=== PATIENT | male | born 1955 | race Caucasian/White ===

== ENCOUNTER 2017-08-26 09:15 | Inpatient (IN) | payer OTHER ==
[2017-08-26] MEDS ORDERED: cloNIDine HCl 0.1 MG TAB ONE (09:43)
[2017-08-26] MEDS ORDERED: ASPIRIN 81 MG CHEWABLE TABLET ONE (09:43)
[2017-08-26 09:53] LABS: Absolute Lymphocytes (CBC) 1.7 K/uL (0.7-4.9); Absolute Monocytes 0.6 K/uL (0.1-1.3); Absolute Neutrophil 3.3 K/uL (1.8-8.0); Basophils % 0.4 % (0-1.3); Eosinophils % 1.3 % (0-4.4); Hematocrit 43.7 % (39.6-49.0); Lymphocytes % 29.7 % (15.3-44.8); MCH 32.4 pg (27.0-35.0); MCV 96.3 fL (80-100); Monocytes % 10.1 % (3.3-12.3); RBC Red Blood Cell Count 4.54 M/uL (4.33-5.43)
[2017-08-26 09:57] LABS: Protime INR 1.02
--- NOTE | 2017-08-26 10:11 | RAD REPORT ---
EXAM DESCRIPTION: RAD - Chest Single View - 08/26/2017 10:02 am CLINICAL HISTORY: Chest pain COMPARISON: June 2011 TECHNIQUE: AP portable chest image was obtained 0951 hours . FINDINGS: Lungs are clear. Heart and vasculature are normal. No measurable pleural effusion and no p neumothorax. No gross bony abnormality seen. No acute aortic findings suspected. IMPRESSION: No acute cardiopulmonary process. No significant interval change.
[2017-08-26 10:43] LABS: Potassium 4.2 mEq/L (3.6-5.0)
[2017-08-26 10:49] LABS: Albumin 4.4 g/dL (3.2-5.5); Bilirubin Direct 0.1 mg/dL (0-0.2); Bilirubin Total 0.7 mg/dL (0.3-1.2); Protein, Total 7.7 g/dL (6.0-8.3)
[2017-08-26] MEDS ORDERED: CLOPIDOGREL 75 MG TABLET ONE (10:53)
--- NOTE | 2017-08-26 11:04 | EDPHYS ---
Physician Documentation [facility] Name: Woo Alas Age: 61 yrs Sex: Male : 1955 Arrival Date: 08/26/2017 Time: 09:16 Bed 8 Private MD: Rasheed Huerta S ED Physician Kade Mcallister HPI: 08/26 09:58 This 61 yrs old Male presents to ER via Wheelchair with complaints of Chest kdr Tightness, Arm Pain. 09:58 The patient or guardian reports chest pain that is located primarily in the substernal kdr area, anterior chest wall, left. Onset: Night before last - intermittent since then, pressure/tightness/squeezing. States that he is under a lot of stress. The pain radiates to the left arm. Associated signs and symptoms: The patient has no apparent associated signs or symptoms. The chest pain is described as aching, dull, a heaviness, a pressure, squeezing. Duration: The patient or guardian reports multiple episodes, that are intermittent, that wax and wane, with no pattern. Severity of pain: At its worst the pain was mild moderate just prior to arrival, in the emergency department the pain has improved mildly. The patient has not experienced similar symptoms in the past. Historical: - Allergies: 09:38 NKA; iw - Home Meds: 09:38 atorvastatin 10 mg oral tab 1 tab once daily [Active]; levothyroxine 75 mcg tab 1 tab iw once daily [Active]; aspirin 81 mg Oral TbEC 1 tab once daily [Active]; Fish Oil oral oral [Active]; Magnesium Oxide Oral [Active]; Vitamin B-6 Oral [Active]; Vitamin E Oral [Active]; - PMHx: 09:38 Hyperlipidemia; Hypothyroidism; iw - PSHx: 09:38 None; iw - Immunization history:: Adult Immunizations not up to date. - Social history:: Smoking status: Patient/guardian denies using tobacco. ROS: 09:58 Constitutional: Negative for fever, chills, and weight loss, Eyes: Negative for injury, kdr pain, redness, and discharge, ENT: Negative for injury, pain, and discharge, Neck: Negative for injury, pain, and swelling, Respiratory: Negative for shortness of breath, cough, wheezing, and pleuritic chest pain, Abdomen/GI: Negative for abdominal pain, nausea, vomiting, diarrhea, and constipation, Back: Negative for injury and pain, : Negative for injury, bleeding, discharge, and swelling, MS/Extremity: Negative for injury and deformity, Skin: Negative for injury, rash, and discoloration, Neuro: Negative for headache, weakness, numbness, tingling, and seizure activity. Psych: Negative for depression, anxiety, suicide ideation, homicidal ideation, and hallucinations, Allergy/Immunology: Negative for hives, rash, and allergies, Endocrine: Negative for neck swelling, polydipsia, polyuria, polyphagia, and marked weight changes, Hematologic/Lymphatic: Negative for swollen nodes, abnormal bleeding, and unusual bruising. 09:58 Cardiovascular: Positive for chest pain, of the anterior aspect of left upper chest and left breast, Negative for edema, orthopnea, palpitations, paroxysmal nocturnal dyspnea, acute changes. Exam: 09:58 Constitutional: This is a well developed, well nourished patient who is awake, alert, kdr and in no acute distress. Head/Face: Normocephalic, atraumatic. Eyes: Pupils equal round and reactive to light, extra-ocular motions intact. Lids and lashes normal. Conjunctiva and sclera are non-icteric and not injected. Cornea within normal limits. Periorbital areas with no swelling, redness, or edema. Neck: Trachea midline, no thyromegaly or masses palpated, and no cervical lymphadenopathy. Supple, full range of motion without nuchal rigidity, or vertebral point tenderness. No Meningismus. Chest/axilla: Normal chest wall appearance and motion. Nontender with no deformity. No lesions are appreciated. Cardiovascular: Regular rate and rhythm with a normal S1 and S2. No gallops, murmurs, or rubs. Normal PMI, no JVD. No pulse deficits. Respiratory: Lungs have equal breath sounds bilaterally, clear to auscultation and percussion. No rales, rhonchi or wheezes noted. No increased work of breathing, no retractions or nasal flaring. Abdomen/GI: Soft, non-tender, with normal bowel sounds. No distension or tympany. No guarding or rebound. No evidence of tenderness throughout. Back: No spinal tenderness. No costovertebral tenderness. Full range of motion. Skin: Warm, dry with normal turgor. Normal color with no rashes, no lesions, and no evidence of cellulitis. MS/ Extremity: Pulses equal, no cyanosis. Neurovascular intact. Full, normal range of motion. Neuro: Awake and alert, GCS 15, oriented to person, place, time, and situation. Cranial nerves II-XII grossly intact. Motor strength 5/5 in all extremities. Sensory grossly intact. Cerebellar exam normal. Normal gait. Psych: Awake, alert, with orientation to person, place and time. Behavior, mood, and affect are within normal limits. Vital Signs: 09:38 BP 184 / 91; Pulse 57; Resp 16 S; Temp 97.8(TE); Pulse Ox 99% on R/A; Weight 72.12 kg; iw Height 5 ft. 10 in. (177.80 cm); Pain 2/10; 10:00 BP 173 / 95; Pulse 52; Resp 16; Pulse Ox 99% ; jl7 10:30 BP 137 / 80; Pulse 53; Resp 16; Pulse Ox 99% ; jl7 12:28 BP 117 / 81; Pulse 56; Resp 18; Pulse Ox 98% on R/A; ae1 09:38 Body Mass Index 22.81 (72.12 kg, 177.80 cm) iw MDM: 11:04 Patient medically screened. kdr 11:05 Data reviewed: vital signs, nurses notes, lab test result(s), EKG, radiologic studies. [facility] 08/26 09:28 Order name: Basic Metabolic Panel [facility] 08/26 09:28 Order name: BNP; Complete Time: 10:47 [facility] 08/26 09:28 Order name: CBC with Diff; Complete Time: 10:47 [facility] 08/26 09:28 Order name: Ckmb [facility] 08/26 09:28 Order name: CPK [facility] 08/26 09:28 Order name: LFT's [facility] 08/26 09:28 Order name: Magnesium [facility] 08/26 09:28 Order name: PT-INR; Complete Time: 10:47 [facility] 08/26 09:28 Order name: Ptt, Activated; Complete Time: 10:47 [facility] 08/26 09:28 Order name: Troponin (emerg Dept Use Only); Complete Time: 10:47 [facility] 08/26 09:28 Order name: XRAY Chest (1 view); Complete Time: 10:47 [facility] 08/26 09:56 Order name: TSH [facility] 08/26 11:07 Order name: Echo with Doppler [facility] 08/26 11:08 Order name: Urinalysis [facility] 08/26 09:28 Order name: EKG; Complete Time: 09:29 [facility] 08/26 09:28 Order name: Cardiac monitoring; Complete Time: : [facility] 08/26 09:28 Order name: EKG - Nurse/Tech; Complete Time: : [facility] 08/26 09:28 Order name: IV Saline Lock; Complete Time: : [facility] 08/26 09:28 Order name: Labs collected and sent; Complete Time: : [facility] 08/26 09:28 Order name: O2 Per Protocol; Complete Time: : [facility] 08/26 09:28 Order name: O2 Sat Monitoring; Complete Time: : [facility] 08/26 11:07 Order name: CONS Physician Consult [facility] 08/26 11:07 Order name: Heart Healthy [facility] 08/26 11:07 Order name: EKG Electrocardiogram [facility] 08/26 11:07 Order name: EKG Electrocardiogram [facility] Administered Medications: 09:48 Drug: Aspirin Chewable Tablet 324 mg Route: PO; jl7 10:56 Follow up: Response: No adverse reaction jl7 09:48 Drug: cloNIDine 0.2 mg Route: PO; jl7 10:30 Follow up: Response: No adverse reaction; Blood pressure is lowered jl7 11:03 Drug: PlaVIX 300 mg Route: PO; jl7 11:20 Follow up: Response: No adverse reaction jl7 Disposition: 08/26/17 11:04 Hospitalization ordered by Simran Bernal for Inpatient Admission. Preliminary diagnosis are Other chest pain, Acute coronary syndrome. - Bed requested for Telemetry/MedSurg (Inpatient). - Status is Inpatient Admission. jl7 - Condition is Fair. - Problem is new. - Symptoms have improved. UTI on Admission? No Signatures: Dispatcher [employer] [facility] Kade Mcallister MD MD kdr Emily Parra RN RN iw Martinez, Eric em1 Leal, Jahala, RN RN jl7 Corrections: (The following items were deleted from the chart) 11:08 11:04 Hospitalization Ordered by Simran Bernal MD for Observation. Preliminary kdr diagnosis is Other chest pain; Acute coronary syndrome. Bed requested for Telemetry/MedSurg (observation). Status is Observation. Condition is Fair. Problem is new. Symptoms have improved. UTI on Admission? No. kdr 11:08 11:08 08/26/2017 11:04 Hospitalization Ordered by Simran Bernal MD for Observation. kdr Preliminary diagnosis is Other chest pain; Acute coronary syndrome. Bed requested for Telemetry/MedSurg (observation). Status is Observation. Condition is Fair. Problem is new. Symptoms have improved. UTI on Admission? No. kdr 12:59 11:08 08/26/2017 11:04 Hospitalization Ordered by Simran Bernal MD for Inpatient em1 Admission. Preliminary diagnosis is Other chest pain; Acute coronary syndrome. Bed requested for Telemetry/MedSurg (Inpatient). Status is Inpatient Admission. Condition is Fair. Problem is new. Symptoms have improved. UTI on Admission? No. kdr 13:19 12:59 08/26/2017 11:04 Hospitalization Ordered by Simran Bernal MD for Inpatient jl7 Admission. Preliminary diagnosis is Other chest pain; Acute coronary syndrome. Bed requested for Telemetry/MedSurg (Inpatient). Status is Inpatient Admission. Condition is Fair. Problem is new. Symptoms have improved. UTI on Admission? No. em1
--- NOTE | 2017-08-26 11:04 | ER ---
Nurse's Notes [facility] Name: Woo Alas Age: 61 yrs Sex: Male : 1955 Arrival Date: 08/26/2017 Time: 09:16 Bed 8 Private MD: Rasheed Huerta S Diagnosis: Other chest pain;Acute coronary syndrome Presentation: 08/26 09:33 Presenting complaint: Patient states: has had chest pain X 2 days, intermittent, feels iw like pressure, radiates to left under arm at times, c/o mild dizziness and nausea when pain hits. Transition of care: patient was not received from another setting of care. Onset of symptoms was August 24, 2017. Initial Sepsis Screen: Does the patient meet any 2 criteria? No. Patient's initial sepsis screen is negative. Does the patient have a suspected source of infection? No. Patient's initial sepsis screen is negative. Care prior to arrival: None. 09:33 Method Of Arrival: Wheelchair iw 09:33 Acuity: MIRELLA 3 iw Historical: - Allergies: 09:38 NKA; iw - Home Meds: 09:38 atorvastatin 10 mg oral tab 1 tab once daily [Active]; levothyroxine 75 mcg tab 1 tab iw once daily [Active]; aspirin 81 mg Oral TbEC 1 tab once daily [Active]; Fish Oil oral oral [Active]; Magnesium Oxide Oral [Active]; Vitamin B-6 Oral [Active]; Vitamin E Oral [Active]; - PMHx: 09:38 Hyperlipidemia; Hypothyroidism; iw - PSHx: 09:38 None; iw - Immunization history:: Adult Immunizations not up to date. - Social history:: Smoking status: Patient/guardian denies using tobacco. Screenin:00 Abuse screen: Denies threats or abuse. Denies injuries from another. Nutritional jl7 screening: No deficits noted. Tuberculosis screening: No symptoms or risk factors identified. Fall Risk IV access (20 points). Total Dover Fall Scale indicates No Risk (0-24 pts). Assessment: 09:40 General: Appears in no apparent distress. uncomfortable, Behavior is calm, cooperative, jl7 appropriate for age. Pain: Complains of pain in anterior aspect of left upper chest Pain radiates to left arm Pain currently is 2 out of 10 on a pain scale. at worst was 7 out of 10 on a pain scale. Quality of pain is described as pressure, Pain began 2-3 days ago. Is intermittent. Neuro: Level of Consciousness is awake, alert, obeys commands, Oriented to person, place, time, situation. Cardiovascular: Heart tones S1 S2 present Patient's skin is warm and dry. Rhythm is sinus bradycardia Chest pain is described as mild, quality is pressure, is located in left anterior chest wall radiates to left arm(s) began 2 days ago episodes are intermittent is alleviated by position, rest, Pt reports shortness of breath "when the pain hits.". Respiratory: Airway is patent Respiratory effort is even, unlabored, Respiratory pattern is regular, symmetrical, Breath sounds are clear bilaterally. GI: No signs and/or symptoms were reported involving the gastrointestinal system. : No signs and/or symptoms were reported regarding the genitourinary system. EENT: No signs and/or symptoms were reported regarding the EENT system. Derm: Skin is pink, warm \\T\\ dry. Musculoskeletal: No signs and/or symptoms reported regarding the musculoskeletal system. 10:47 Reassessment: Troponin 0.49, provider notified. jl7 11:00 Reassessment: Provider at bedside discussing lab results and plan of care. jl7 12:00 Reassessment: No changes from previously documented assessment. Patient and/or family jl7 updated on plan of care and expected duration. Pain level reassessed. Patient is alert, oriented x 3, equal unlabored respirations, skin warm/dry/pink. 13:00 Reassessment: Patient and/or family updated on plan of care and expected duration. Pain jl7 level reassessed. Patient is alert, oriented x 3, equal unlabored respirations, skin warm/dry/pink. Vital Signs: 09:38 BP 184 / 91; Pulse 57; Resp 16 S; Temp 97.8(TE); Pulse Ox 99% on R/A; Weight 72.12 kg; iw Height 5 ft. 10 in. (177.80 cm); Pain 2/10; 10:00 BP 173 / 95; Pulse 52; Resp 16; Pulse Ox 99% ; jl7 10:30 BP 137 / 80; Pulse 53; Resp 16; Pulse Ox 99% ; jl7 12:28 BP 117 / 81; Pulse 56; Resp 18; Pulse Ox 98% on R/A; ae1 09:38 Body Mass Index 22.81 (72.12 kg, 177.80 cm) ED Course: 09:16 Patient arrived in ED. rg4 09:16 Rasheed Huerta MD is Private Physician. rg4 09:25 Kade Mcallister MD is Attending Physician. kdr 09:36 Triage completed. iw 09:37 EKG done, by education technician. reviewed by Kade Mcallister MD. tc 09:38 Initial lab(s) drawn, by pr, sent to lab. Inserted saline lock: 20 gauge in right jl7 antecubital area, using aseptic technique. Blood collected. Patient maintains SpO2 saturation greater than 95% on room air. 09:38 Arm band placed on. iw 09:40 Vandana Han RN is Primary Nurse. jl7 09:40 Patient has correct armband on for positive identification. Placed in gown. Bed in low jl7 position. Call light in reach. Side rails up X 1. personnel monitor on. Pulse ox on. NIBP on. 09:59 X-ray completed. Portable x-ray completed in exam room. Patient tolerated procedure sw well. 10:00 XRAY Chest (1 view) In Process Unspecified. EDMS 11:03 Simran Bernal MD is Hospitalizing Provider. kdr 13:18 No provider procedures requiring assistance completed. Patient admitted, IV remains in jl7 place. Administered Medications: 09:48 Drug: Aspirin Chewable Tablet 324 mg Route: PO; jl7 10:56 Follow up: Response: No adverse reaction jl7 09:48 Drug: cloNIDine 0.2 mg Route: PO; jl7 10:30 Follow up: Response: No adverse reaction; Blood pressure is lowered jl7 11:03 Drug: PlaVIX 300 mg Route: PO; jl7 11:20 Follow up: Response: No adverse reaction jl7 Outcome: 11:04 Decision to Hospitalize by Provider. kdr 13:18 Admitted to Tele accompanied by tech, via wheelchair, room 414, with chart, Report jl7 called to ALEX Johnson 13:18 Condition: stable 13:18 Discharge instructions given to patient, family, Instructed on the need for admit, Demonstrated understanding of instructions. 13:19 Patient left the ED. jl7 Signatures: Dispatcher [employer] [facility] Kade Mcallister MD MD kdr Emily Parra RN RN Simona Santos, technical support engineer EKG Ttc Pino, Kana Pinto, RN RN ae1 Haley Hager4 Vandana Han, RN RN jl7
[2017-08-26] MEDS ORDERED: ONDANSETRON 4 MG/2 ML VIAL IV PRN (11:05)
[2017-08-26] MEDS ORDERED: ACETAMINOPHEN 500 MG TAB PO PRN (11:05)
--- NOTE | 2017-08-26 12:18 | EKG ---
Test Date: 2017-08-26 Test Time: 09:40:27 Engineering Officer: LIEN MEASUREMENT RESULTS: Intervals: Rate: 55 CO: 186 QRSD: 104 QT: 416 QTc: 397 [place]: P: 55 CO: 186 QRS: 49 T: 68 INTERPRETIVE STATEMENTS: Sinus bradycardia Otherwise normal ECG No previous ECG available for comparison Electronically Signed On 08-26-17 12:17:50 CDT by Ketan Hansen
--- NOTE | 2017-08-26 13:04 | ECHO ---
HEIGHT: 5 ft 10 in WEIGHT: 158 lb 15.958 oz DATE OF STUDY: 08/26/[address]: Simran Bernal MD 2-DIMENSIONAL: YES M.MODE: YES DOPPLER: YES COLOR FLOW: YES TDS: NO PORTABLE: NO DEFINITY: NO BUBBLE STUDY: NO DIAGNOSIS: CHEST PAIN CARDIAC HISTORY: CATHERIZATION: NO SURGERY: NO PROSTHETIC VALVE: NO PACEMAKER: NO MEASUREMENTS (cm) DIASTOLIC (NORMALS) SYSTOLIC (NORMALS) IVSd 0.8 (0.6-1.2) LA Diam 3.4 (1.9-4.0) LVEF 68% LVIDd 4.3 (3.5-5.7) LVIDs 2.7 (2.0-3.5) %FS 38% LVPWd 0.9 (0.6-1.2) Ao Diam 3.2 (2.0-3.7) 2 DIMENSIONAL ASSESSMENT: RIGHT ATRIUM: NORMAL LEFT ATRIUM: NORMAL RIGHT VENTRICLE: NORMAL LEFT VENTRICLE: NORMAL TRICUSPID VALVE: NORMAL MITRAL VALVE: NORMAL PULMONIC VALVE: NORMAL AORTIC VALVE: NORMAL PERICARDIAL EFFUSION: NONE AORTIC ROOT: NORMAL LEFT VENTRICULAR WALL MOTION: NORMAL DOPPLER/COLOR FLOW: TRACE MITRAL AND TRICUSPID REGURGITATION. NORMAL RIGHT VENTRICULAR SYSTOLIC PRESSURE. COMMENTS: NORMAL 2D ECHOCARDIOGRAM. TRACE MITRAL AND TRICUSPID REGURGITATION. TECHNOLOGIST: Katarina BHANDARI
--- NOTE | 2017-08-26 13:27 | P.HP ---
Certification for Inpatient Patient admitted to: Inpatient With expected LOS: >2 Midnights Patient will require the following post-hospital care: None Practitioner: I am a practitioner with admitting privileges, knowledge of patient current condition, hospital course, and medical plan of care. Services: Services provided to patient in accordance with Admission requirements found in Title 42 Section 412.3 of the Code of Federal Regulations Patient History Date of Service: 08/26/17 Primary Care Provider: Dr Huerta Reason for admission: Chest pain History of Present Illness: 61 y/o M with significant past medical history of hypertension who presented to the ED complaining of having some chest discomfort that started yesterday. Patient stated that for a month now he has been in a working to move his house and couple of days ago he was helping his son in the yd and to cut down a tree with an Axe. Last night however patient started noticing that he was having some chest discomfort that was radiating down to his right arm and was pressure- like in nature and thus decided to come to the ER today. Patient stated that he had associated shortness of breath as well. Patient stated that he has seen Dr. Hansen in the past for similar symptoms and at that time he had sent some lab work to [facility] to get tested. His pain was 8/10 at its worse and nothing has helped his pain at home. Patient currently in the ER does not have any pain however says that there is some mild discomfort in the chest area. In the ED patient had lab work done which was consistent with troponin I x1 elevated to 0.49. Medicine team was then consulted to admit the patient for further care Allergies niacin [Niacin] Adverse Reaction (Severe, Verified 07/12/11 00:33) Itching/Hives/Rash No Known Allergies Allergy (Uncoded 08/26/17 13:23) Unknown Home Medications: Hydrocodone/Acetaminophen [Vicodin 5-500 Tablet] 1 each PO Q3HP PRN #30 tablet 07/12/11 Sulfamethoxazole/Trimethoprim [Bactrim Ds Tablet] 1 each PO Q12HR #20 tablet 12/04 - Past Medical/Surgical History Diabetic: No - Family History Father -: Heart disease, Cancer, Other (see notes) Notes: prostate CA, heart attack cause of (79) Mother -: Heart disease, Kidney disease Notes: artery disease, of kidney failure. siblings -: Heart disease, Cancer, Kidney disease Notes: pancreatic CA- brother and sister cause of . heart attack (2 older brothers) older passed 66y.o. due to heart disease, other one still alive. KIDNEY STONES althroughout the family. - Social History Alcohol use: Yes CD- Drugs: No Caffeine use: Yes Review of Systems General: As per HPI Physical Examination - Physical Exam General: Alert, In no apparent distress HEENT: Atraumatic Neck: Supple Respiratory: Clear to auscultation bilaterally, Normal air movement Cardiovascular: Regular rate/rhythm, Normal S1 S2 Gastrointestinal: Normal bowel sounds, No tenderness Musculoskeletal: No tenderness Integumentary: No rashes Neurological: Normal speech, Normal strength at 5/5 x4 extr, Normal tone Lymphatics: No axilla or inguinal lymphadenopathy - Studies Laboratory Data (last 24 hrs) 08/26/17 09:38: PT 12.0, INR 1.02, APTT 28.0 08/26/17 09:38: WBC 5.6, Hgb 14.7, Hct 43.7, Plt Count 156 08/26/17 09:38: B-Natriuretic Peptide 99 08/26/17 09:38: Sodium 138, Potassium 4.2, BUN 21 H, Creatinine 0.89, Glucose 99 , Magnesium 2.0, Total Bilirubin 0.7, AST 40, ALT 30, Alkaline Phosphatase 35 L Assessment and Plan - Problems (Diagnosis) (1) NSTEMI (non-ST elevated myocardial infarction) Current Visit: Yes Status: Acute Plan: Troponin x 1 elevated in the ED. EKG with no specific changes. -Cardiac consulted. Awaiting Reccs -On BB, ASA, lipitor, Lovenox -ECHO pending (2) HTN (hypertension) Current Visit: Yes Status: Chronic Plan: Restart BP medication Qualifiers: Hypertension type: essential hypertension Qualified Code(s): I10 - Essential (primary) hypertension (3) Hypothyroid Current Visit: Yes Status: Chronic Plan: Restart Home medication Qualifiers: Hypothyroidism type: acquired Qualified Code(s): E03.9 - Hypothyroidism, unspecified Discharge Plan: Home Plan to discharge in: 48 Hours - Advance Directives Does patient have a Living Will: No Does patient have a Durable POA for Healthcare: No - Code Status/Comfort Care Code Status Assessed: Yes Critical Care: No
[2017-08-26 14:18] VITALS: BMI 22.9
[2017-08-26] MEDS: NA CHLORIDE 0.9% 1,000 ML IV SCH ×2 (15:12→22:00)
[2017-08-26] MEDS: ENOXAPARIN 80 MG/0.8 ML SQ SCH ×2 (15:16→22:06)
[2017-08-26] MEDS: FERROUS SULFATE 325 MG TAB PO SCH (18:00)
[2017-08-26 19:14] LABS: Urine Appearance CLEAR; Urine Bilirubin NEGATIVE (NEG); Urine Blood NEGATIVE (NEG); Urine Color YELLOW; Urine Glucose NEGATIVE (NEG); Urine Protein NEGATIVE (NEG); Urine Specific Gravity 1.015 (1.005-1.030); Urine Urobilinogen 0.2 mg/dL (0.2-1.0); Urine pH 6.5 (5.0-7.0)
[2017-08-26 19:15] LABS: Urine Microscopic Reflex NO UMIC
[2017-08-26] MEDS: ATORVASTATIN 80 MG TAB PO SCH (22:06)
[2017-08-27] MEDS: NA CHLORIDE 0.9% 1,000 ML IV SCH ×3 (01:23→20:00)
[2017-08-27 04:15] LABS: Absolute Lymphocytes (CBC) 2.3 K/uL (0.7-4.9); Absolute Monocytes 0.7 K/uL (0.1-1.3); Absolute Neutrophil 3.3 K/uL (1.8-8.0); Basophils % 0.3 % (0-1.3); Eosinophils % 1.7 % (0-4.4); Lymphocytes % 36.1 % (15.3-44.8); MCH 32.4 pg (27.0-35.0); MCV 97.4 fL (80-100); MPV 11.5 fL (7.6-11.3)
[2017-08-27 04:46] LABS: Albumin 3.5 g/dL (3.2-5.5); Bilirubin Total 0.6 mg/dL (0.3-1.2); Magnesium 1.9 mg/dL (1.8-2.5); Potassium 4.5 mEq/L (3.6-5.0); Protein, Total 6.3 g/dL (6.0-8.3)
[2017-08-27] MEDS: METOPROLOL XL 25 MG TAB PO SCH (05:47)
[2017-08-27] MEDS: LEVOTHYROXINE SOD 0.075 MG TAB PO SCH (05:47)
[2017-08-27] MEDS ORDERED: METOPROLOL XL 25 MG TAB PO SCH (06:00)
[2017-08-27] MEDS: ENOXAPARIN 80 MG/0.8 ML SQ SCH ×2 (09:00→21:29)
[2017-08-27] MEDS: FERROUS SULFATE 325 MG TAB PO SCH (09:04)
[2017-08-27] MEDS: ASPIRIN 81 MG CHEWABLE TABLET PO SCH (09:04)
[2017-08-27] MEDS ORDERED: MIDAZOLAM HCL 2 MG/2 ML INJ ONE (11:01)
[2017-08-27] MEDS ORDERED: ATROPINE SULF 1 MG/10 ML SYR IV ONE (11:01)
[2017-08-27] MEDS ORDERED: LIDOCAINE 1% 20 ML MDV ONE (11:01)
[2017-08-27] MEDS ORDERED: FENTANYL CITR 100 MCG/2 ML ONE (11:01)
[2017-08-27] MEDS ORDERED: NA CHLORIDE 0.9% 50 ML ONE (11:02)
[2017-08-27] MEDS ORDERED: NA CHLORIDE 0.9% 500 ML ONE (11:07)
[2017-08-27] MEDS ORDERED: CLOPIDOGREL 75 MG TABLET ONE (11:26)
[2017-08-27] MEDS ORDERED: ASPIRIN 325 MG TAB ONE (11:33)
--- NOTE | 2017-08-27 13:17 | P.PN ---
Subjective Date of Service: 08/27/17 Primary Care Provider: Dr Huerta Chief Complaint: Chest pain Pt seen and examined at bedside. No complains to offer overnight. Doing well overall. Awaiting cardiac Cath this AM Review of Systems General: As per HPI Physical Examination - Vital Signs Temperature: 96.9 F Blood Pressure: 161/78 Pulse: 50 Respirations: 18 Pulse Ox (%): 99 - Physical Exam General: Alert, In no apparent distress HEENT: Atraumatic, PERRLA, EOMI Neck: Supple, JVD not distended Respiratory: Clear to auscultation bilaterally, Normal air movement Cardiovascular: Regular rate/rhythm, Normal S1 S2 Gastrointestinal: Normal bowel sounds, No tenderness Musculoskeletal: No tenderness Integumentary: No rashes Neurological: Normal speech, Normal tone, Normal affect Lymphatics: No axilla or inguinal lymphadenopathy - Studies Medications List Reviewed: Yes Assessment & Plan - Problems (Diagnosis) (1) NSTEMI (non-ST elevated myocardial infarction) Onset Date: 08/27/17 Current Visit: Yes Status: Acute Plan: Troponin x 1 elevated in the ED. EKG with no specific changes. -Cardiac consulted. Reccs appreciated -Cardiac Cath today -On BB, ASA, lipitor, Lovenox -ECHO done (2) HTN (hypertension) Onset Date: 08/27/17 Current Visit: Yes Status: Chronic Plan: Restart BP medication Qualifiers: Hypertension type: essential hypertension Qualified Code(s): I10 - Essential (primary) hypertension (3) Hypothyroid Onset Date: 08/27/17 Current Visit: Yes Status: Chronic Plan: Restart Home medication Qualifiers: Hypothyroidism type: acquired Qualified Code(s): E03.9 - Hypothyroidism, unspecified Discharge Plan: Home Plan to discharge in: 48 Hours - Code Status/Comfort Care Code Status Assessed: Yes Critical Care: No
--- NOTE | 2017-08-27 16:22 | EKG ---
Test Date: 2017-08-27 Test Time: 08:35:58 Vp Information Technology: LIEN MEASUREMENT RESULTS: Intervals: Rate: 56 TN: 196 QRSD: 96 QT: 424 QTc: 409 [place]: P: 63 TN: 196 QRS: 59 T: 63 INTERPRETIVE STATEMENTS: Sinus bradycardia Otherwise normal ECG Compared to ECG 08/26/2017 09:40:27 No significant changes Electronically Signed On 08-27-17 16:19:49 CDT by Mukesh Uribe
[2017-08-27] MEDS ORDERED: ACETAMINOPHEN 325 MG TABLET PO PRN (19:30)
[2017-08-27] MEDS ORDERED: NITROGLYCERIN 0.4 MG/TAB SL PRN (19:31)
[2017-08-27] MEDS ORDERED: MORPHINE 5 MG/ML VIAL IV PRN (20:57)
[2017-08-27] MEDS ORDERED: ZOLPIDEM TARTRATE 10 MG TABLET PO PRN (20:58)
[2017-08-27] MEDS: ATORVASTATIN 80 MG TAB PO SCH (21:00)
--- NOTE | 2017-08-28 03:25 | CON ---
Date of Consultation: 08/27/2017 Reason For Consultation: [id number] myocardial infarction. History Of Present Illness: Mr. Alas is a 61-year-old male with history of hypertension, dyslipi demia. He takes medicine for his cholesterol only. His blood pressure is diet controlled. He takes Lipitor, aspirin, and Synthroid for hypothyroidism. Came in with classic symptoms of acute coronary syndrome and had a positive troponin. Symptoms have been going on intermittently for 2 to 3 days. EKG is unremarkable. Chest x-ray is unremarkable. Echocardiogram is unremarkable. Past Medical History: As stated above. Allergies: NONE. Review of Systems: Negative. Social History: Negative. Family History: Positive for heart disease. Physical Examination: Vital Signs: Stable. Afebrile. HEENT: Negative. Neck: Supple without any bruit, lymphadenopathy, JVD, or thyromegaly. Chest: Clear to auscultation and percussion. Cardiac: Revealed a regular rhythm and rate without any murmurs, gallops, or rubs. Abdomen: Benign. Extremities: Revealed no clubbing, cyanosis, or edema. Diagnostic Data: As stated earlier. Impression And Plan: A 61-year-old with classic symptoms for acute coronary syndrome, positive tropo guanako consistent with [id number] myocardial infarction. He has received Plavix, aspirin, Lipitor , Toprol, Lovenox. We will proceed with a left heart catheterization to define his coronary anatomy. He agrees to proceed. His blood pressure is well controlled and his dyslipidemia is well controlle d. He has normal creatinine and no allergy to contrast. JANET/KALLI Voice ID: [id number] Report ID: [id number]
--- NOTE | 2017-08-28 05:25 | OP ---
Surgeon: Mukesh Uribe MD Computer Network Support Specialist: Evy Amaya. The patient was brought into the chemical lab technician as an inpatient. Procedures: Left heart catheterization and primary stent of the right coronary artery. Description Of Procedure: The patient is a 61-year-old male with history of dyslipidemia and gastroe sophageal reflux disease. He came in with classic symptoms and a positive troponin. He was brought to the chemical lab technician, prepped and draped in the routine sterile fashion. A 6-Zimbabwean sheath was introduced in the right common femoral artery and StarClose was used to close the case. Joi catheters 6-Fr ench were used to do the coronary anatomy angiography. He was found to have a 90% proximal RCA lesio n. He was found to have a 90% obtuse marginal and a 70% long proximal to mid LAD stenosis. I decide d to stage him and I did a primary stent on the RCA. A JR4 guide was used with side hole. A [place] wire was used to cross the lesion. A 3.0 x 12 Synergy stent was deployed at 14 atmosphere with 0% re sidual. Complications: There were no complications. Estimated Blood Loss: 5 cc. Total Conscious Sedation: 45 minutes. The patient received 300 Plavix and an aspirin during the procedure. He has received 300 Plavix in t emergency room prior to that. Angiomax was used also during the procedure. Final Diagnosis: Severe right coronary artery stenosis, status post primary RCA stent that is succes sful. Impression And Plan: The plan is to stage him and bring him back next week for the LAD and OM stent. Meanwhile, he will stay in the hospital overnight and go home tomorrow and do the other procedures as an outpatient. JANET/KALLI Voice ID: [id number] Report ID: [id number]
[2017-08-28] MEDS: LEVOTHYROXINE SOD 0.075 MG TAB PO SCH (05:49)
[2017-08-28] MEDS: METOPROLOL XL 25 MG TAB PO SCH (05:49)
[2017-08-28 05:54] LABS: Absolute Lymphocytes (CBC) 1.7 K/uL (0.7-4.9); Absolute Monocytes 0.9 K/uL (0.1-1.3); Absolute Neutrophil 4.2 K/uL (1.8-8.0); Basophils % 0.4 % (0-1.3); Eosinophils % 1.3 % (0-4.4); Hematocrit 39.3 % (39.6-49.0); Lymphocytes % 25.3 % (15.3-44.8); MCH 32.9 pg (27.0-35.0); MCV 96.9 fL (80-100); MPV 11.4 fL (7.6-11.3); Monocytes % 12.4 % (3.3-12.3); RBC Red Blood Cell Count 4.05 M/uL (4.33-5.43)
[2017-08-28 06:23] LABS: Albumin 3.5 g/dL (3.2-5.5); Bilirubin Total 0.5 mg/dL (0.3-1.2); Potassium 4.2 mEq/L (3.6-5.0); Protein, Total 6.1 g/dL (6.0-8.3)
[2017-08-28] MEDS ORDERED: MORPHINE 4 MG/ML SYR ONE (07:29)
[2017-08-28] MEDS ORDERED: Morphine 2 MG/2 ML SYR IV PRN (07:30)
[2017-08-28] MEDS: ASPIRIN 81 MG CHEWABLE TABLET PO SCH (08:21)
[2017-08-28] MEDS: FERROUS SULFATE 325 MG TAB PO SCH (08:21)
[2017-08-28] MEDS: CLOPIDOGREL 75 MG TABLET PO SCH (08:21)
[2017-08-28] MEDS ORDERED: LIDOCAINE 1% 20 ML MDV ONE (08:46)
[2017-08-28] MEDS ORDERED: HEPARIN 5000 UNIT/ML 1 ML VIAL ONE (08:46)
[2017-08-28] MEDS ORDERED: ATROPINE SULF 1 MG/10 ML SYR IV ONE (08:47)
[2017-08-28] MEDS ORDERED: NITROGLYCERIN/D5W 25 MG/250 ML BTL IV ONE (08:47)
[2017-08-28] MEDS ORDERED: NA CHLORIDE 0.9% 50 ML ONE (08:47)
[2017-08-28] MEDS ORDERED: NICARDIPINE HCL 25 MG/10 ML IV ONE (08:47)
[2017-08-28] MEDS: ENOXAPARIN 80 MG/0.8 ML SQ SCH (09:00)
[2017-08-28] MEDS ORDERED: NA CHLORIDE 0.9% 500 ML ONE (09:02)
[2017-08-28] MEDS ORDERED: HEPA 1000U/500MLS 2,000 UNIT/1,000 ML BAG IV ONE (09:06)
[2017-08-28] MEDS ORDERED: NITROGLYCERIN 0.4 MG/TAB SL ONE (09:10)
[2017-08-28] MEDS ORDERED: FENTANYL CITR 100 MCG/2 ML ONE (09:11)
[2017-08-28] MEDS ORDERED: NITROGLYCERIN 100 MCG/ML SYR (for cath lab use only) IV ONE (09:11)
[2017-08-28] MEDS ORDERED: MIDAZOLAM HCL 2 MG/2 ML INJ ONE (09:11)
[2017-08-28] MEDS ORDERED: CLOPIDOGREL 75 MG TABLET ONE (10:08)
--- NOTE | 2017-08-28 12:02 | P.PN ---
Subjective Date of Service: 08/28/17 Primary Care Provider: Dr Huerta Chief Complaint: Chest pain Pt seen and examined at bedside. Case DW with Cardiology. Pt is complaining of having Nausea and vomiting. States he is having more chest pain in the left side today than before. S/p heart Cath lyndsey AM. Cardiology consulted. Reccs Heart Cath today. Yesterday was found to have 99% occulsion in LAD, 99% occulsion in RCA and 70% in PAREDES. Pt had a stent placed in LAD yesterday Review of Systems General: As per HPI Physical Examination - Vital Signs Temperature: 97.6 F Blood Pressure: 136/64 Pulse: 55 Respirations: 17 Pulse Ox (%): 99 - Physical Exam General: Alert, In no apparent distress, Oriented x3 HEENT: Atraumatic, PERRLA, EOMI Neck: Supple, JVD not distended Respiratory: Clear to auscultation bilaterally, Normal air movement Cardiovascular: Regular rate/rhythm, Normal S1 S2 Gastrointestinal: Normal bowel sounds, No tenderness Musculoskeletal: No tenderness Integumentary: No rashes Neurological: Normal speech, Normal tone, Normal affect Lymphatics: No axilla or inguinal lymphadenopathy - Studies Medications List Reviewed: Yes Assessment & Plan - Problems (Diagnosis) (1) NSTEMI (non-ST elevated myocardial infarction) Onset Date: 08/27/17 Current Visit: Yes Status: Acute Plan: Troponin x 1 elevated in the ED. EKG with no specific changes. -Cardiac consulted. Rec appreciated -S/p Cath Yesterday with Stent in LAD. -Now with more pain. Heart Cath scheduled for him again today. -On BB, ASA, lipitor, Lovenox (2) HTN (hypertension) Onset Date: 08/27/17 Current Visit: Yes Status: Chronic Plan: Restart BP medication Qualifiers: Hypertension type: essential hypertension Qualified Code(s): I10 - Essential (primary) hypertension (3) Hypothyroid Onset Date: 08/27/17 Current Visit: Yes Status: Chronic Plan: Restart Home medication Qualifiers: Hypothyroidism type: acquired Qualified Code(s): E03.9 - Hypothyroidism, unspecified Discharge Plan: Home Plan to discharge in: 48 Hours - Code Status/Comfort Care Code Status Assessed: Yes Critical Care: No
[2017-08-28] MEDS: NA CHLORIDE 0.9% 1,000 ML IV SCH (15:34)
[2017-08-28] MEDS: ATORVASTATIN 80 MG TAB PO SCH (15:34)
--- NOTE | 2017-08-28 15:37 | EKG ---
Test Date: 2017-08-28 Test Time: 14:13:39 Bottom Turning Lathe Tender: RANDY MEASUREMENT RESULTS: Intervals: Rate: 55 MD: 194 QRSD: 94 QT: 402 QTc: 384 [place]: P: 54 MD: 194 QRS: 32 T: 58 INTERPRETIVE STATEMENTS: Sinus bradycardia Possible Left atrial enlargement Abnormal ECG Compared to ECG 08/27/2017 08:35:58 no significant change from previous ECG Electronically Signed On 08-28-17 15:36:52 CDT by Ketan Hansen
[2017-08-28 18:36] VITALS: O2SAT 97
--- NOTE | 2017-08-28 20:52 | OP ---
Surgeon: Ketan Hansen MD Identification: The patient is a 61-year-old man. Procedures: Left heart catheterization, coronary angiography, and PCI with stent of an obtuse margin al and an LAD, both successful. Indication: Unstable angina 1 day after PCI of an RCA stenosis. Procedure In Detail: The patient gave informed consent. He was n.p.o. he was brought to the cardiac mineral ore processing labourer in a fasting state. He was sedated with Versed and fentanyl. Prepared and draped in the u sual sterile fashion. Right radial approach was used. His right femoral artery had been used just y for a procedure. He was in good shape with no evidence of hematoma or AV fistula. Right ra dial artery was identified using palpation, entered using a 21-gauge needle a 0.021 inch diameter wir e was used to cannulate the artery, modified Seldinger technique 6-Guyanese Terumo radial sheath. The sheath was flushed and then a radial cocktail was given consisting of nicardipine, heparin, and nitro glycerin. We used a TIG catheter guided to the ascending aorta using a [employer] Glidewire with a short radius J-tip and fluoroscopy. We angiogram left and right coronary. We found the right coronary st ent to be in great shape. No deterioration of that situation at all. There was much less flow in th e obtuse marginal and there was the previous day was LUBA grade 1 to 1.5 flow. We used an exchange w tomas, exchanged out for an [place] left 3.5 with side holes guide. We gave Angiomax, demonstrated activ ated clotting time greater than 300 seconds. After engaging the left main and taking pictures, we cr ossed the obtuse marginal lesion with a [place] wire. We were able to advance a stent across the lesi on. It gave mild resistance to crossing but full deployment of a 2.75 x 16 stent was used. The farhan ographic result was excellent. LUBA grade 3 flow afterwards. All of his symptoms resolved after sherie t. The LAD had a complicated long mid stenosis up to 70%, but it was close to 18 mm in length and ir regular and multiple 70% lesions. We felt it was probably also capable causing angina, so we crossed it with the same Latricia wire. We were able to cross it with a stent 3.0 x 24 synergy inflated to 12 atmospheres. There was an excellent angiographic result. There were no complications from the proc edure. All balloons and wires were withdrawn. Final pictures were taken and then the guide catheter was removed from the left main. We used the J-wire to straighten out the catheter and withdraw out through the radial artery. We removed the radial artery sheath and placed a TR band. There were no complications from the procedure. NATALIE Voice ID: [id number] Report ID: [id number]
[2017-08-29] MEDS: NA CHLORIDE 0.9% 1,000 ML IV SCH (00:36)
[2017-08-29 06:11] LABS: Absolute Lymphocytes (CBC) 1.7 K/uL (0.7-4.9); Absolute Monocytes 0.8 K/uL (0.1-1.3); Absolute Neutrophil 5.1 K/uL (1.8-8.0); Basophils % 0.3 % (0-1.3); Eosinophils % 1.1 % (0-4.4); Hematocrit 40.2 % (39.6-49.0); Lymphocytes % 21.9 % (15.3-44.8); MCH 32.9 pg (27.0-35.0); MCV 97.3 fL (80-100); Monocytes % 10.7 % (3.3-12.3); RBC Red Blood Cell Count 4.13 M/uL (4.33-5.43)
[2017-08-29 06:22] LABS: Albumin 3.7 g/dL (3.2-5.5); Bilirubin Total 0.7 mg/dL (0.3-1.2); Potassium 4.3 mEq/L (3.6-5.0); Protein, Total 6.4 g/dL (6.0-8.3)
[2017-08-29] MEDS: LEVOTHYROXINE SOD 0.075 MG TAB PO SCH (06:25)
[2017-08-29] MEDS: METOPROLOL XL 25 MG TAB PO SCH (06:25)
[2017-08-29] MEDS: ATORVASTATIN 80 MG TAB PO SCH (08:08)
[2017-08-29] MEDS: CLOPIDOGREL 75 MG TABLET PO SCH (08:08)
[2017-08-29] MEDS: ASPIRIN 81 MG CHEWABLE TABLET PO SCH (08:08)
[2017-08-29] MEDS: FERROUS SULFATE 325 MG TAB PO SCH (08:08)
[2017-08-29 08:27] VITALS: BP 123/76; TEMP 98.4
--- NOTE | 2017-08-29 10:14 | P.DS ---
Admission Date: 08/26/17 Discharge Date: 08/29/17 Primary Care Provider: Dr Huerta Disposition: ROUTINE DISCHARGE Discharge Condition: GOOD Reason for Admission: Chest pain Consultations: Cardiology Procedures: Multiple stent placement Brief History of Present Illness: Patient is 61 years of age admitted with chest pain non ST elevation [place] Hospital Course: Patient had 2 cardiac gas done multiple stents placed the time of discharge he was doing well alert oriented responsive cooperative denies any chest pain shortness of breath vital signs all stable chest clear cardiovascular system also was normal abdomen soft extremities no edema vital signs all stable saturation satisfactory patient's was discharged as per cardiology instructions and will be scheduled to follow-up with Cardiology Vital Signs/Physical Exam: Temp Pulse Resp BP Pulse Ox 98.4 F 52 16 123/76 97 08/29/17 08:00 08/29/17 08:00 08/29/17 08:00 08/29/17 08:00 08/29/17 08:00 Laboratory Data at Discharge: WBC 7.7 K/uL (4.3-10.9) 08/29/17 05:17 Hgb 13.6 g/dL (13.6-17.9) 08/29/17 05:17 Hct 40.2 % (39.6-49.0) 08/29/17 05:17 Plt Count 124 K/uL (152-406) L 08/29/17 05:17 PT 12.0 SECONDS (9.5-12.5) 08/26/17 09:38 INR 1.02 08/26/17 09:38 APTT 28.0 SECONDS (24.3-36.9) 08/26/17 09:38 Sodium 139 mEq/L (135-145) 08/29/17 05:17 Potassium 4.3 mEq/L (3.6-5.0) 08/29/17 05:17 BUN 16 mg/dL (6-20) 08/29/17 05:17 Creatinine 0.87 mg/dL (0.61-1.24) 08/29/17 05:17 Glucose 91 mg/dL (65-120) 08/29/17 05:17 Magnesium 1.9 mg/dL (1.8-2.5) 08/27/17 03:41 Total Bilirubin 0.7 mg/dL (0.3-1.2) 08/29/17 05:17 AST 49 IU/L (10-42) H 08/29/17 05:17 ALT 33 IU/L (10-60) 08/29/17 05:17 Alkaline Phosphatase 33 IU/L (42-121) L 08/29/17 05:17 Troponin I 0.55 ng/mL (<0.03) H* 08/26/17 21:00 B-Natriuretic Peptide 99 pg/ml (<=100) 08/26/17 09:38 Triglycerides 144 mg/dL (35-160) 08/26/17 15:49 Cholesterol 142 mg/dL (<200) 08/26/17 15:49 HDL Cholesterol 43 mg/dL (27-67) 08/26/17 15:49 Cholesterol/HDL Ratio 3.30 08/26/17 15:49 Home Medications: Aspirin 81 mg PO DAILY 08/26/17 Ferrous Sulfate [Iron] 325 mg PO DAILY 08/26/17 Levothyroxine [Synthroid*] 75 mcg PO [id number] 08/26/17 Aspirin Chewable [Aspirin Chewable*] 81 mg PO DAILY tab.chew 08/29/17 Atorvastatin Calcium [Lipitor] 80 mg PO DAILY #30 tab 08/29/17 Clopidogrel Bisulfate [Plavix*] 75 mg PO DAILY #30 tablet 08/29/17 Levothyroxine [Synthroid*] 0.075 mg PO [id number] tab 08/29/17 Metoprolol Succinate [Toprol Xl*] 12.5 mg PO [id number] #30 tab 08/29/17 Nitroglycerin [Nitrostat*] 0.4 mg SL UD PRN #1 bottle 08/29/17 New Medications: Atorvastatin Calcium [Lipitor] 80 mg PO DAILY #30 tab Clopidogrel Bisulfate [Plavix*] 75 mg PO DAILY #30 tablet Metoprolol Succinate [Toprol Xl*] 12.5 mg PO [id number] #30 tab Nitroglycerin [Nitrostat*] 0.4 mg SL UD PRN #1 bottle PRN Reason: Chest Pain Diet: Regular Activity: Ad alessandra Followup: Mukesh Uribe MD [ACTIVE - CAN ADMIT] - 1 Week
== END 2017-08-29 12:54 | disposition home or self-care (01) | DRG 247 ==
LOC: ER 09:15 → ERHOLD 11:06 → 4TH 13:13
PROVIDERS: ADMIT Family Medicine; ATTEND Internal Medicine Sleep Medicine
PROC: 027034Z Dilation of Coronary Artery, One Artery with Drug-eluting Intraluminal Device, Percutaneous Approach (ICD-10-PCS; principal; 2017-08-27)
PROC: B201YZZ Plain Radiography of Multiple Coronary Arteries using Other Contrast (ICD-10-PCS; 2017-08-27)
PROC: 027034Z Dilation of Coronary Artery, One Artery with Drug-eluting Intraluminal Device, Percutaneous Approach (ICD-10-PCS; 2017-08-28)
PROC: B201YZZ Plain Radiography of Multiple Coronary Arteries using Other Contrast (ICD-10-PCS; 2017-08-28)
DX: I21.4 Non-ST elevation (NSTEMI) myocardial infarction (principal); I25.110 Atherosclerotic heart disease of native coronary artery with unstable angina pectoris; I10 Essential (primary) hypertension; E03.9 Hypothyroidism, unspecified
CPT/HCPCS: 36415; 71045; 80048; 80053; 80061; 80076; 81003; 82550; 82553; 83735; 83880; 84443; 84484; 85025; 85347; 85610; 85730; 87086; 87088; 92928; 92929; 93005; 93306; 93454; 93458; 99285; C1725; C1893; J0583; J1644; J1650; J2250; J2405; J3010; J7030